=== PATIENT | female | born 1990 | race Caucasian/White ===

== ENCOUNTER 2016-11-28 17:44 | Emergency (ER) | payer BC ==
[~2016-11-28] VITALS: Ht 157.5 cm; Wt 61.0 kg
[~2016-11-28 17:44] MED LIST: MACR100C PO; Z.0.BCPILL PO
[2016-11-28 17:57] VITALS: BP 122/71; PULSE 97; RESP 18; TEMP 98.7; O2SAT 99
[2016-11-28] MEDS ORDERED: SODIUM CHLOR 0.9% 1000 ML INJ 1,000 ML IV SCH (18:34)
[2016-11-28] MEDS ORDERED: SODIUM CHLORIDE 0.9% FLUSH 10 ML FLUSH IV FLUSH PRN (18:45)
--- NOTE | 2016-11-28 18:49 | PD ---
HPI Chief Complaint: Abdominal Pain Time Seen by Provider: 18:49 Travel History International Travel<30 days: No Contact w/Intl Traveler<30days: No Traveled to known affect area: No History of Present Illness HPI Patient is a 26-year-old female who presents to emergency room with complaints of right lower quadrant abdominal pain. Patient reports that she has been having intermittent lower quadrant pain for the past week, patient reports that pain has been intermittent in nature. Patient reports the pain is worse today. Reports that nothing is making pain better or worse. Patient denies any fevers or chills, denies nausea or vomiting. Patient denies any vaginal discharge or bleeding, denies dysuria, urinary urgency or frequency. PFSH Past Medical History Diminished Hearing: No Gastrointestinal Disorders: Yes ( HX OF IBS) Genitourinary: Yes (hx of frequent uti's) ?: Unknown LMP: 11/10/16 : 2 Para: 2 Miscarriage: 0 : 0 Ovarian Cysts: Yes Past Surgical History Section: Yes (X2) Gynecologic Surgery: Yes (LAPROSCOPY X 2) Other Surgery: Yes (LAPROSCOPY 2004, 2005) Social History Alcohol Use: No (RARE) Tobacco Use: No Substance Use: No Allergies-Medications (Allergen,Severity, Reaction): Coded Allergies: Amoxicillin (Verified Allergy, Severe, Rash, 11/28/16) Ceclor (Verified Allergy, Severe, Rash, 11/28/16) Penicillin (Verified Allergy, Severe, Rash, 11/28/16) Reported Meds & Prescriptions Reported Meds & Active Scripts Active Macrobid (Nitrofurantoin Macrocrystals) 100 Mg Cap 100 Mg PO BID 5 Days Reported Control Pills (Miscellaneous Medication) Tab 1 Tab PO DAILY Review of Systems General / Constitutional: No: Fever Eyes: No: Visual changes HENT: No: Headaches Cardiovascular: No: Chest Pain or Discomfort Respiratory: No: Shortness of Breath Gastrointestinal: Positive: Abdominal Pain Genitourinary: No: Dysuria Musculoskeletal: No: Pain Skin: No Rash Neurologic: No: Weakness Psychiatric: No: Depression Endocrine: No: Polydipsia Hematologic/Lymphatic: No: Easy Bruising Physical Exam Narrative GENERAL: Mild distress SKIN: Focused skin assessment warm/dry. HEAD: Atraumatic. Normocephalic. EYES: Pupils equal and round. No scleral icterus. No injection or drainage. ENT: No nasal bleeding or discharge. Mucous membranes pink and moist. NECK: Trachea midline. No JVD. CARDIOVASCULAR: Regular rate and rhythm. No murmur appreciated. RESPIRATORY: No accessory muscle use. Clear to auscultation. Breath sounds equal bilaterally. GASTROINTESTINAL: Abdomen soft, increased tenderness to right lower quadrant, nondistended. MUSCULOSKELETAL: No obvious deformities. No clubbing. No cyanosis. No edema. NEUROLOGICAL: Awake and alert. No obvious cranial nerve deficits. Motor grossly within normal limits. Normal speech. PSYCHIATRIC: Appropriate mood and affect; insight and judgment normal. Data Data Last Documented VS Vital Signs Date Time Temp Pulse Resp B/P Pulse Ox O2 Delivery O2 Flow Rate FiO2 11/28/16 17:57 98.7 97 18 122/71 99 Orders Urinalysis - C+S If Indicated (11/28/16 18:15) Ed Urine Pregnancytest Poc (11/28/16 18:15) Complete Blood Count With Diff (11/28/16 18:34) Comprehensive Metabolic Panel (11/28/16 18:34) Lipase (11/28/16 18:34) Prothrombin Time / Inr (Pt) (11/28/16 18:34) Act Partial Throm Time (Ptt) (11/28/16 18:34) Iv Access Insert/Monitor (11/28/16 18:34) Sodium Chlor 0.9% 1000 Ml Inj (Ns 1000 M (11/28/16 18:34) Sodium Chloride 0.9% Flush (Ns Flush) (11/28/16 18:45) MDM Medical Decision Making Medical Screen Exam Complete: Yes Emergency Medical Condition: Yes Interpretation(s) Vital Signs Date Time Temp Pulse Resp B/P Pulse Ox O2 Delivery O2 Flow Rate FiO2 11/28/16 17:57 98.7 97 18 122/71 99 Differential Diagnosis Appendicitis, ovarian cyst, ovarian torsion, cervicitis, UTI Narrative Course Patient is a 26 year old female who presents to ER with c/o of right lower quadrant pain for the past week. Patient reports that symptoms have been intermittent in nature. Reports that nothing makes pain better or worse. Reports hx of ovarian cyst in the past. Labs as well as studies ordered. Ct abd/pelvis ordered to r/o appendicitis. Pelvis US ordered to evaluate for possible ovarian cyst/torsion Patient signed out to care of Dr. Hampton at change of shift Daphne Dougherty DO Nov 28, 2016 18:49
[2016-11-28 18:55] VITALS: BP 112/72; PULSE 88; RESP 16; O2SAT 100
[2016-11-28 19:02] LABS: BASOPHIL # 0.1 TH/MM3 (0-0.2); BASOPHIL % 1.5 % (0.0-2.0); EOSINOPHIL # 0.1 TH/MM3 (0-0.4); EOSINOPHIL % 0.8 % (0.0-4.0); HEMATOCRIT 38.1 % (35.0-46.0); HEMO FLAGS DIFF FINAL; LYMPH % 31.7 % (9.0-44.0); LYMPHOCYTE # 2.2 TH/MM3 (1.0-4.8); MEAN CELL VOLUME 90.6 FL (80.0-100.0); MEAN CORPUSCULAR HEMOGLOBIN 31.6 PG (27.0-34.0); MEAN CORPUSCULAR HGB CONC 34.9 % (32.0-36.0); MONO % 7.4 % (0.0-8.0); NEUT % 58.6 % (16.0-70.0); PLATELET COUNT 267 TH/MM3 (150-450); RED BLOOD COUNT 4.21 MIL/MM3 (4.00-5.30); RED CELL DISTRIBUTION WIDTH 11.7 % (11.6-17.2); WHITE BLOOD COUNT 6.9 TH/MM3 (4.0-11.0)
[2016-11-28 19:08] LABS: BLOOD, URINE NEG (NEG); GLUCOSE,URINE NEG (NEG); KETONE, URINE NEG (NEG); NITRITE,URINE NEG (NEG)
[2016-11-28 19:12] LABS: CHLORIDE 106 MEQ/L (98-107); POTASSIUM 3.7 MEQ/L (3.5-5.1); SODIUM (NA) 143 MEQ/L (136-145)
[2016-11-28 19:13] LABS: URINE COLOR YELLOW (YELLW/STRAW)
[2016-11-28 19:15] LABS: ANION GAP 7 MEQ/L (5-15); BICARBONATE 30.3 MEQ/L (21.0-32.0)
[2016-11-28 19:16] LABS: BLOOD UREA NITROGEN 9 MG/DL (7-18); COMMENT (UR) CULT NOT INDICATED; CULTURE IF INDICATED CULT NOT INDICATED; SQUAMOUS EPITHELIAL CELL URINE 0-5 /hpf (0-5); WBC, URINE 0-2 /hpf (0-5)
[2016-11-28 19:17] LABS: INTERNATIONAL NORMALIZED RATIO 0.9 RATIO; PROTHROMBIN TIME - PATIENT 10.2 SEC (9.8-11.6)
[2016-11-28 19:18] LABS: ALT (GPT) 16 U/L (10-53); AST (GOT) 10 U/L (15-37); GLOMERULAR FILTRATION RATE 98 ML/MIN (>89)
[2016-11-28 19:20] LABS: TOTAL BILIRUBIN ADULT 0.5 MG/DL (0.2-1.0)
[2016-11-28] MEDS ORDERED: NORG1TAB28 PO (19:20)
[2016-11-28 19:21] LABS: ALKALINE PHOSPHATASE 58 U/L (45-117)
--- NOTE | 2016-11-28 19:21 | PD ---
Physical Exam Date Seen by Provider: Nov 28, 2016 Time Seen by Provider: 19:20 Narrative Accepted in transfer of care from Dr. Dougherty Data Data Last Documented VS Vital Signs Date Time Temp Pulse Resp B/P Pulse Ox O2 Delivery O2 Flow Rate FiO2 11/28/16 19:25 16 11/28/16 18:55 88 112/72 100 Room Air 11/28/16 17:57 98.7 Orders Urinalysis - C+S If Indicated (11/28/16 18:15) Ed Urine Pregnancytest Poc (11/28/16 18:15) Complete Blood Count With Diff (11/28/16 18:34) Comprehensive Metabolic Panel (11/28/16 18:34) Lipase (11/28/16 18:34) Prothrombin Time / Inr (Pt) (11/28/16 18:34) Act Partial Throm Time (Ptt) (11/28/16 18:34) Iv Access Insert/Monitor (11/28/16 18:34) Sodium Chlor 0.9% 1000 Ml Inj (Ns 1000 M (11/28/16 18:34) Sodium Chloride 0.9% Flush (Ns Flush) (11/28/16 18:45) Ct Abd/Pel W Iv Contrast(Rout) (11/28/16 18:49) Us Pelvis Comp Brass Buffer/Non-Preg (11/28/16 ) Iohexol 350 Inj (Omnipaque 350 Inj) (11/28/16 21:37) Labs Laboratory Tests Test 11/28/16 18:50 White Blood Count 6.9 TH/MM3 Red Blood Count 4.21 MIL/MM3 Hemoglobin 13.3 GM/DL Hematocrit 38.1 % Mean Corpuscular Volume 90.6 FL Mean Corpuscular Hemoglobin 31.6 PG Mean Corpuscular Hemoglobin 34.9 % Concent Red Cell Distribution Width 11.7 % Platelet Count 267 TH/MM3 Mean Platelet Volume 8.2 FL Neutrophils (%) (Auto) 58.6 % Lymphocytes (%) (Auto) 31.7 % Monocytes (%) (Auto) 7.4 % Eosinophils (%) (Auto) 0.8 % Basophils (%) (Auto) 1.5 % Neutrophils # (Auto) 4.0 TH/MM3 Lymphocytes # (Auto) 2.2 TH/MM3 Monocytes # (Auto) 0.5 TH/MM3 Eosinophils # (Auto) 0.1 TH/MM3 Basophils # (Auto) 0.1 TH/MM3 CBC Comment DIFF FINAL Differential Comment Prothrombin Time 10.2 SEC Prothromb Time International 0.9 RATIO Ratio Activated Partial 26.0 SEC Thromboplast Time Urine Color YELLOW Urine Turbidity CLEAR Urine pH 7.0 Urine Specific [place] 1.015 Urine Protein NEG mg/dL Urine Glucose (UA) NEG mg/dL Urine Ketones NEG mg/dL Urine Occult Blood NEG Urine Nitrite NEG Urine Bilirubin NEG Urine Leukocyte Esterase TRACE Urine WBC 0-2 /hpf Urine Squamous Epithelial 0-5 /hpf Cells Microscopic Urinalysis Comment CULT NOT INDICATED Sodium Level 143 MEQ/L Potassium Level 3.7 MEQ/L Chloride Level 106 MEQ/L Carbon Dioxide Level 30.3 MEQ/L Anion Gap 7 MEQ/L Blood Urea Nitrogen 9 MG/DL Creatinine 0.71 MG/DL Estimat Glomerular Filtration 98 ML/MIN Rate Random Glucose 94 MG/DL Calcium Level 9.1 MG/DL Total Bilirubin 0.5 MG/DL Aspartate Amino Transf 10 U/L (AST/SGOT) Alanine Aminotransferase 16 U/L (ALT/SGPT) Alkaline Phosphatase 58 U/L Total Protein 7.4 GM/DL Albumin 3.5 GM/DL Lipase 273 U/L [facility] Medical Record Reviewed: Yes Supervised Visit with CINDA: No Interpretation(s) Last Impressions Abdomen/Pelvis CT 11/28/16 1849 Signed Impressions: Service Date/Time: Monday, November 28, 2016 21:24 - CONCLUSION: 1. A right ovarian cyst is present. It appears benign, just minimally complex, particularly on tonight's ultrasound. Followup ultrasound in 8-12 weeks suggested to confirm resolution. No solid or suspicious adnexal findings. Small fluid in the pelvic cul-de-sac. 2. Otherwise essentially normal CT of the abdomen and pelvis. Normal appendix. Ariel Be MD Pelvis Ultrasound 11/28/16 0000 Signed Impressions: Service Date/Time: Monday, November 28, 2016 19:27 - CONCLUSION: 1. Complex cyst of the right ovary. Followup transvaginal pelvic ultrasound recommended in 8-12 weeks to confirm resolution. No torsion. 2. No acute abnormality seen of the uterus or left ovary. Ariel Be MD CBC & BMP Diagram 11/28/16 18:50 Differential Diagnosis Accepted in transfer of care from Dr. Dougherty; please refer to her dictation Narrative Course Accepted in transfer of care from Dr. Dougherty; Follow-up of pending labs CT ultrasound and patient disposition Labs and imaging results finalized and patient informed of ultrasound and CT findings for ovarian cyst with out evidence of torsion patient is otherwise stable for outpatient management encouraged to follow-up with territory sales representative in 8- 12 weeks for repeat ultrasound Diagnosis Primary Impression: Ovarian cyst Referrals: [facility] call for appointment Patient Instructions: General Instructions Additional Instruction: Follow-up with MICROGRINDER OPERATOR for repeat ultrasound and 8-12 weeks Take medication as prescribed as needed for pain associated with inflammation Return to the emergency department for a concerns or change in condition Med/Other Pt SpecificInfo: Prescription(s) given Scripts Naproxen Sodium DS (Anaprox DS)550 Mg [id number] Mg PO Q12HR PRN (PAIN GREATER THAN 6) #15 TAB Ref 0 Prov:Cathy Hampton MD 11/28/16 Disposition: 01 DISCHARGE HOME Condition: Stable Cathy Hampton MD Nov 28, 2016 19:21
--- NOTE | 2016-11-28 20:18 | RADHPO ---
EXAM DATE/TIME: 11/28/2016 19:27 [facility] COMPARISON: No previous studies available for comparison. INDICATIONS : Pelvic pain. MEDICAL HISTORY : IBS. Ovarian cysts. Frequent UTIs. SURGICAL HISTORY : Cholecystectomy. Laproscopy x2. ENCOUNTER: Initial ACUITY: 1 week PAIN SCORE: 4/10 LOCATION: Bilateral pelvis MEASUREMENTS: UTERUS: 8.9 x 5.5 x 4.5 cm ENDOMETRIAL STRIPE: 6 mm RIGHT OVARY: 4.4 x 4.0 x 3.7 cm LEFT OVARY: 2.9 x 1.5 x 1.2 cm FINDINGS: UTERUS: The myometrium has homogeneous echotexture without mass. RIGHT OVARY: Debris-filled cyst with 5 mm thick wall is seen of the right ovary. The cyst is approximately 3.0 x 3 .3 x 3.2 cm. Blood flow is demonstrated to the right ovary. LEFT OVARY: Normal left ovary. Blood flow is demonstrated. MISCELLANEOUS: No free fluid. CONCLUSION: 1. Complex cyst of the right ovary. Followup transvaginal pelvic ultrasound recommended in 8-12 weeks to confirm resolution. No torsion. 2. No acute abnormality seen of the uterus or left ovary. Ariel Be MD on November 28, 2016 at 20:14 Board Certified Radiologist. This report was verified electronically.
[2016-11-28] MEDS ORDERED: IOHEXOL 350 MG/ML 10 ML VIAL (for RAD DIAG) IV ONE (21:37)
--- NOTE | 2016-11-28 21:51 | RADHPO ---
EXAM DATE/TIME: 11/28/2016 21:24 [facility] COMPARISON: US PELVIS - COMPLETE ([facility],NON-PREG), November 28, 2016, 19:27. INDICATIONS : Right lower quadrant pain. IV CONTRAST: 80 cc Omnipaque 350 (iohexol) IV ORAL CONTRAST: No oral contrast ingested. RADIATION DOSE: 6.13 CTDIvol (mGy) MEDICAL HISTORY : Irritiable bowel syndrome. SURGICAL HISTORY : section. ENCOUNTER: Initial ACUITY: 1 week PAIN SCALE: 5/10 LOCATION: Right lower quadrant TECHNIQUE: Volumetric scanning of the abdomen and pelvis was performed. Using automated exposure control and ad justment of the mA and/or kV according to patient size, radiation dose was kept as low as reasonably achievable to obtain optimal diagnostic quality images. FINDINGS: LOWER LUNGS: The visualized lower lungs are clear. LIVER: Homogeneous density without lesion. There is no dilation of the biliary tree. No calcified gallston es. SPLEEN: Normal size without lesion. PANCREAS: Within normal limits. KIDNEYS: Normal in size and shape. There is no mass, stone or hydronephrosis. ADRENAL GLANDS: Within normal limits. VASCULAR: There is no aortic aneurysm. BOWEL/MESENTERY: The stomach, small bowel, and colon demonstrate no acute abnormality. There is no free intraperitone al air or fluid. The appendix is well-visualized, normal. ABDOMINAL WALL: Within normal limits. RETROPERITONEUM: There is no lymphadenopathy. BLADDER: No wall thickening or mass. REPRODUCTIVE: 3.9 cm right ovarian cyst. Uterus and left adnexal region appear normal. There is small free fluid in the pelvic cavity. INGUINAL: There is no lymphadenopathy or hernia. MUSCULOSKELETAL: No acute bony abnormality demonstrated. 18 mm sclerotic focus seen of the L1 vertebral body, nonspeci fic but most likely a benign bone island. If there is any clinical history of back pain in the upper lumbar region a bone scan with SPECT imaging may be helpful. CONCLUSION: 1. A right ovarian cyst is present. It appears benign, just minimally complex, particularly on tonigh t's ultrasound. Followup ultrasound in 8-12 weeks suggested to confirm resolution. No solid or suspic ious adnexal findings. Small fluid in the pelvic cul-de-sac. 2. Otherwise essentially normal CT of the abdomen and pelvis. Normal appendix. Ariel Be MD on November 28, 2016 at 21:43 Board Certified Radiologist. This report was verified electronically.
[2016-11-28] MEDS ORDERED: NAPR550 PO (22:05)
[2016-11-28 22:15] VITALS: BP 96/61; PULSE 78; RESP 16; O2SAT 99
== END 2016-11-28 22:27 | disposition home or self-care (01) ==
LOC: PHED 17:44
DX: N83.201 Unspecified ovarian cyst, right side (principal); Z87.19 Personal history of other diseases of the digestive system; Z87.448 Personal history of other diseases of urinary system; Z87.42 Personal history of other diseases of the female genital tract
CPT/HCPCS: 74177; 76856; 80053; 81001; 83690; 84703; 85025; 85610; 85730; 96360; 99284; J7030; Q9967

== ENCOUNTER 2017-12-24 13:19 | Emergency (ER) | payer BC ==
[~2017-12-24] VITALS: Ht 157.5 cm; Wt 60.0 kg
[~2017-12-24 13:19] MED LIST changes: -MACR100C PO; +NAPR5TAB5 PO; +NORG1TAB28 PO; -Z.0.BCPILL PO
[2017-12-24 13:25] VITALS: BP 136/77; PULSE 102; RESP 16; TEMP 99; O2SAT 98
[2017-12-24] MEDS ORDERED: SODIUM CHLOR 0.9% 1000 ML INJ 1,000 ML IV ONE (13:41)
[2017-12-24] MEDS ORDERED: KETOROLAC TROMETHAMINE 30 MG/ML (IVP) VIAL IVP ONE (13:45)
[2017-12-24] MEDS ORDERED: SODIUM CHLORIDE 0.9% FLUSH 10 ML FLUSH IVF PRN (13:45)
[2017-12-24] MEDS ORDERED: METOCLOPRAMIDE HCL 10 MG/2 ML VIAL IVP ONE (13:45)
[2017-12-24] MEDS ORDERED: diphenhydrAMINE HCL 50 MG/ML VIAL IVP ONE (13:45)
[2017-12-24 14:21] VITALS: BP 132/82; PULSE 110; RESP 16; O2SAT 97
[2017-12-24] MEDS ORDERED: LORazepam 2 MG/ML VIAL IV PUSH ONE (14:45)
--- NOTE | 2017-12-24 15:04 | PD ---
HPI Chief Complaint: Headache Time Seen by Provider: 13:33 Travel History International Travel<30 days: No Contact w/Intl Traveler<30days: No Traveled to known affect area: No History of Present Illness HPI This is a 27-year-old female with a history of complex migraines presents emergency department with left-sided head pain as well as numbness and tingling in her left arm and hand accompanied with some subjective weakness. She states symptoms been going on for about 2-3 hours, she is on Topamax and states that this usually controls her headaches. She denies any chest pain shortness of breath abdominal pain nausea vomiting. Does endorse some very vague visual deficits which she describes as fuzzy vision. Symptoms moderate, left side of her head, associated signs and symptoms in context as above. She states this happened to her once years ago as well. No family history of early heart disease or early stroke. States her grandmother had a stroke as an elderly woman. PFSH Past Medical History Diminished Hearing: No Gastrointestinal Disorders: Yes ( HX OF IBS) Genitourinary: Yes (hx of frequent uti's) Headaches: Yes Immunizations Current: Yes Migraines: Yes Influenza Vaccination: No ?: Not LMP: 2 WEEKS : 2 Para: 2 Miscarriage: 0 : 0 Ovarian Cysts: Yes Past Surgical History Section: Yes (X2) Gynecologic Surgery: Yes (LAPROSCOPY X 2) Other Surgery: Yes (LAPROSCOPY 2004, 2005) Social History Alcohol Use: Yes (RARE) Tobacco Use: No Substance Use: No Allergies-Medications (Allergen,Severity, Reaction): Coded Allergies: amoxicillin (Unverified Allergy, Severe, Rash, 12/24/17) cefaclor (Unverified Allergy, Severe, Rash, 12/24/17) penicillin G (Unverified Allergy, Severe, Rash, 12/24/17) Reported Meds & Prescriptions Reported Meds & Active Scripts Active Reported Ortho Tri-Cyclen Lo (Norgestimate-Ethinyl Estradiol) 0.18/0.215/0.25 mg-25 Mcg Tab 1 Tab PO DAILY Review of Systems Except as stated in HPI: all other systems reviewed are Neg Physical Exam Narrative GENERAL: Well-developed well-nourished no obvious distress peer SKIN: Focused skin assessment warm/dry. HEAD: Atraumatic. Normocephalic. EYES: Pupils equal and round. No scleral icterus. No injection or drainage. ENT: No nasal bleeding or discharge. Mucous membranes pink and moist. NECK: Trachea midline. No JVD. CARDIOVASCULAR: Regular rate and rhythm. No murmur appreciated. RESPIRATORY: No accessory muscle use. Clear to auscultation. Breath sounds equal bilaterally. GASTROINTESTINAL: Abdomen soft, non-tender, nondistended. Hepatic and splenic margins not palpable. MUSCULOSKELETAL: No obvious deformities. No clubbing. No cyanosis. No edema. NEUROLOGICAL: Awake and alert. Cranial nerves II through XII grossly intact and nonfocal, 5 out of 5 strength in bilateral lower extremities in the right upper extremity, there is good strength and good range of motion of the left hand and elbow however the patient has preference for an abduction of the thumb and fingers nearly in a fist. There is no spasmodic contracture in the patient with some effort is able to overcome the symptoms. PSYCHIATRIC: Appropriate mood and affect; insight and judgment normal. Data Data Last Documented VS Vital Signs Date Time Temp Pulse Resp B/P (MAP) Pulse Ox O2 Delivery O2 Flow Rate FiO2 12/24/17 15:45 12/24/17 15:17 109 16 98 Room Air 12/24/17 13:25 99.0 Orders Orders Ecg Monitoring (12/24/17 13:41) Iv Access Insert/Monitor (12/24/17 13:41) Oximetry (12/24/17 13:41) Sodium Chloride 0.9% Flush (Ns Flush) (12/24/17 13:45) Ketorolac Inj (Toradol Inj) (12/24/17 13:45) Diphenhydramine Inj (Benadryl Inj) (12/24/17 13:45) Metoclopramide Inj (Reglan Inj) (12/24/17 13:45) Sodium Chlor 0.9% 1000 Ml Inj (Ns 1000 M (12/24/17 13:41) Lorazepam Inj (Ativan Inj) (12/24/17 14:45) Ct Brain W/O Iv Contrast(Rout) (12/24/17 ) Ed Discharge Order (12/24/17 15:42) [facility] Medical Decision Making Medical Screen Exam Complete: Yes Emergency Medical Condition: Yes Differential Diagnosis Complex migraine, acute stroke unlikely, TIA unlikely, acute intracranial abnormality unlikely Narrative Course Patient room to the emergency department, extremely low risk for CVA and TIA. The patient was given Reglan and Benadryl her left upper extremity symptoms had resolved however she still had persistent headache, this warranted a CAT scan of her head which was within normal limits, milligram of Ativan was given to patient still with some mild headache but is starting to feel better. She appears well in no obvious distress and is no indication further workup or management of this patient this time. Discussed that she needs follow-up with a neurologist symptomatic management and return to ED criteria. She is stable for discharge Diagnosis Primary Impression: Migraine Referrals: Otilio Ashraf MD Patient Instructions: Acute Headache (DC), General Instructions Disposition: 01 DISCHARGE HOME Condition: Stable Arturo Horner MD December 24, 2017 15:04
--- NOTE | 2017-12-24 15:09 | RADRPT ---
EXAM DATE: 12/24/2017 3:06 PM EDT AGE/SEX: 27 years / Female INDICATIONS: Headache, blurred vision with upper extremity numbness. CLINICAL DATA: This is the patient's initial encounter. Patient reports that signs and symptoms have been present for 1 day and indicates a pain score of 7/10. MEDICAL/SURGICAL HISTORY: None. Abdominal aortic aneurysm repair. section. RADIATION DOSE: 52.63 CTDI (mGy) COMPARISON: No prior [facility] exams available for comparison. TECHNIQUE: CT of the head without contrast. Using automated exposure control and adjustment of the mA and/or kV according to patient size, radiation dose was kept as low as reasonably achievable to ob tain optimal diagnostic quality images. FINDINGS: Cerebrum: The ventricles are normal for age. No evidence of midline shift, mass lesion, hemorrhage or acute infarction. No extraaxial fluid collections are seen. Posterior Fossa: The cerebellum and brainstem are intact. The 4th ventricle is midline. The cerebe llopontine angle is unremarkable. Extracranial: The visualized portion of the orbits is intact. Skull: The calvaria is intact. No evidence of skull fracture. Post Contrast: No abnormal areas of parenchymal or dural enhancement. No evidence of blood-brain ba rrier breakdown. CONCLUSION: 1. Unremarkable CT scan of the brain. Electronically signed by: Dmitriy Blandon MD 12/24/2017 3:08 PM EDT
[2017-12-24 15:17] VITALS: BP 117/67; PULSE 109; RESP 16; O2SAT 98
== END 2017-12-24 15:57 | disposition home or self-care (01) ==
LOC: PHED 13:19
DX: G43.909 Migraine, unspecified, not intractable, without status migrainosus (principal); R53.1 Weakness; R20.0 Anesthesia of skin
CPT/HCPCS: 70450; 96361; 96374; 96375; 99284; J1200; J1885; J2060; J2765; J7030